=== PATIENT | male | born 1980 | race Caucasian/White ===

== ENCOUNTER → 2022-07-21 16:02 | Outpatient (CLI) | payer OTHER, SELFPAY ==
--- NOTE | ~2022-07-21 | CT_ITS ---
EXAMINATION: CT sinus wo con DATE: 07/21/2022 16:14 INDICATION: Chronic sinusitis TECHNIQUE: Computed tomography (CT) of the paranasal sinuses was performed without contrast. Iterativ e reconstruction technique was employed. Exam dose: 305.66 mGy-cm total exam DLP. COMPARISON: None FINDINGS: There is leftward bowing of the nasal septum. The nasal turbinates are moderately prominent and relatively symmetric in size. The ostiomeatal units are patent bilaterally. Normal development and aeration of the paranasal sinuses and mastoid air cells. IMPRESSION: Normal development and aeration of the paranasal sinuses, ostiomeatal units and mastoid air cells Reviewed, dictated and finalized at [facility]. Reviewed, dictated and finalized at [facility]. IMPRESSION: Normal development and aeration of the paranasal sinuses, ostiomea denys units and mastoid air cells
== END ==
PROVIDERS: PCP Family Medicine; Visit Provider Otolaryngology
DX: J32.9 Chronic sinusitis, unspecified (principal)
CPT/HCPCS: 70486

== ENCOUNTER 2024-02-03 07:00 | Outpatient (NON) | payer OTHER, SELFPAY | END 2024-02-03 07:01 | disposition home or self-care (01) | LOC: ANHLAB 02-04 10:04 | PROVIDERS: PCP Family Medicine; Visit Provider Internal Medicine Gastroenterology | DX: K63.5 Polyp of colon (principal) | CPT/HCPCS: 88305 ==

== ENCOUNTER 2024-02-03 10:54 | Day surgery (SDC) | payer OTHER, SELFPAY ==
[2024-01-14 12:04] VITALS: BMI 27.0
[2024-01-14 13:44] VITALS: BMI 27.0
[2024-02-03 11:28] VITALS: BP 128/93; PULSE 74; RESP 18; TEMP 36.4; O2SAT 99; BMI 26.4
[2024-02-03] MEDS: LACTATED RINGERS 1,000 ML 150 ML IV CONT (11:37)
--- NOTE | 2024-02-03 12:06 | PM.HPGS ---
History of Present Illness History of Present Illness Consent: Risks, benefits, and alternatives have been discussed and questions answered. Patient agrees to proceed with procedure. Chief complaint: Gerd w/o Esophagitis, Hematemesis, Neoplasm Screen Narrative: Amrik Redd is a 43 year old male presents for both colonoscopy and EGD. Patient reports a distant history of coffee-ground emesis. Recently has had some dyspepsia and felt to have underlying acid reflux. Patient denies any dysphagia. EGD is requested to assess more thoroughly. Patient also noticed episode of blood in his stool with wiping. He had a similar episode several years ago. He presents today for neoplasia screening colonoscopy. Review of Systems Review of Systems: All systems reviewed & are unremarkable except as noted in HPI and below PMFSH Past Medical History Medical History Allergies Allergy-induced asthma Esophageal abnormality Hyperlipidemia Family History Family History Grandparent Cerebrovascular accident Other Diabetes mellitus Family history of coronary artery disease Hypertension Social History Social History Smoking status: Never smoker Second hand tobacco smoke exposure: No Alcohol intake: current Substance use: never Substance use type: does not use Lack of Transportation: No Lack of Food: Never True Current Housing: I Have Housing Concerned About Future Housing: No Difficulty Paying Gas/Electric Bills: No Difficulty Paying for Meds: No Currently Unemployed: No Difficulty w/ Childcare or Family Care: No Living arrangements: with family Gender identity (if verbalized by the patient): Male Sexual Orientation (if Verbalized by the Patient): Straight or Heterosexual Spiritual care concerns: No Agree to blood products: Yes Meds Home Medications and Allergies Home Medications Medication Instructions Recorded Confirmed Type albuterol sulfate 90 mcg/actuation 1 inh inhalation Q4H PRN shortness 08/27/21 02/03/24 Rx aerosol inhaler of breath or wheezing #8.5 grams albuterol sulfate 90 mcg/actuation 1 inh inhalation Q4-6H PRN 08/27/21 02/03/24 History breath activated powder inhaler Shortness Of Breath Or Wheezing cholecalciferol (vitamin D3) 125 125 mcg PO DAILY 08/27/21 02/03/24 History mcg (5,000 unit) capsule omega 6-dfy-wem-fish oil 100 1 cap PO DAILY 01/02/22 02/03/24 History mg-160 mg-1,000 mg capsule (Fish Oil) fluticasone propionate 50 1 spray intranasal DAILY 01/28/22 02/03/24 History mcg/actuation nasal spray,suspension (Flonase Allergy Relief) rosuvastatin 5 mg tablet 5 mg PO DAILY #90 tabs 01/17/24 02/03/24 Rx Allergies Allergy/AdvReac Type Severity Reaction Status Date / Time banana Allergy Intermediate Chest Pain Verified 02/03/24 11:16 clavulanic acid AdvReac Severe Nausea and Verified 02/03/24 11:15 [From Augmentin] Vomiting amoxicillin AdvReac Unknown Nausea and Verified 02/03/24 11:15 Vomiting Vital Signs Vital Signs - 24 hr 02/03/24 11:28 Temperature 97.6 F Pulse Rate 74 Respiratory Rate 18 Blood Pressure 128/93 H Pulse Oximetry 99 Oxygen Delivery Room Air Exam Narrative: Physical exam reveals patient. Vital signs stable. HEENT exam is unremarkable. Patient is anicteric. Lungs are clear to auscultation and percussion. Heart is without murmur or extra sounds. Abdomen bowel sounds are present soft nontender with no organomegaly. Digital external rectal exam normal. Assessment and Plan Assessment and plan (1) Blood in stool: Code(s): K92.1 - Melena Status: Acute Assessment and Plan: Patient has noticed blood in his stool described as purplish in color. Plan for colonoscopy to assess more thoroughly. High-fiber diet advise
--- NOTE | 2024-02-03 12:27 | WPDANESEPPF ---
Anes - Initial Pre Proc Eval Procedure: Operation Date: 02/03/24 12:30 Proposed Procedures p Esophagogastroduodenoscopy - Yony Melendez MD s Screening Colonoscopy - Yony Melendez MD Date/Time: 02/03/24 12:27 Surgeon: Yony Melendez MD Pre Op Diagnosis: Gerd w/o Esophagitis, Hematemesis, Neoplasm Screen Patient Data Age: 43 Gender: M Height: 1.91 m Weight: 96 kg Last Vital Signs Temp 36.4 C 02/03/24 11:28 Pulse 74 02/03/24 11:28 Resp 18 02/03/24 11:28 BP 128/93 H 02/03/24 11:28 Pulse Ox 99 02/03/24 11:28 O2 Del Method Room Air 02/03/24 11:28 Allergies Allergy/AdvReac Type Severity Reaction Status Date / Time banana Allergy Intermediate Chest Pain Verified 02/03/24 11:16 clavulanic acid AdvReac Severe Nausea and Verified 02/03/24 11:15 [From Augmentin] Vomiting amoxicillin AdvReac Unknown Nausea and Verified 02/03/24 11:15 Vomiting Home Medications Medication Instructions Recorded Confirmed Type albuterol sulfate 90 mcg/actuation 1 inh inhalation Q4H PRN shortness 08/27/21 02/03/24 Rx aerosol inhaler of breath or wheezing #8.5 grams albuterol sulfate 90 mcg/actuation 1 inh inhalation Q4-6H PRN 08/27/21 02/03/24 History breath activated powder inhaler Shortness Of Breath Or Wheezing cholecalciferol (vitamin D3) 125 125 mcg PO DAILY 08/27/21 02/03/24 History mcg (5,000 unit) capsule omega 9-cac-vzr-fish oil 100 1 cap PO DAILY 01/02/22 02/03/24 History mg-160 mg-1,000 mg capsule (Fish Oil) fluticasone propionate 50 1 spray intranasal DAILY 01/28/22 02/03/24 History mcg/actuation nasal spray,suspension (Flonase Allergy Relief) rosuvastatin 5 mg tablet 5 mg PO DAILY #90 tabs 01/17/24 02/03/24 Rx Patient hx anesthesia problems: none Family hx anesthesia problems: none Results Review: All pre-operative results and documents have been reviewed as part of the pre-operative evaluation. [facility] Past Medical History Medical History Allergies Allergy-induced asthma Esophageal abnormality Hyperlipidemia Family History Family History Grandparent Cerebrovascular accident Other Diabetes mellitus Family history of coronary artery disease Hypertension Social History Social History Smoking status: Never smoker Second hand tobacco smoke exposure: No Alcohol intake: current Substance use: never Substance use type: does not use Lack of Transportation: No Lack of Food: Never True Current Housing: I Have Housing Concerned About Future Housing: No Difficulty Paying Gas/Electric Bills: No Difficulty Paying for Meds: No Currently Unemployed: No Difficulty w/ Childcare or Family Care: No Living arrangements: with family Gender identity (if verbalized by the patient): Male Sexual Orientation (if Verbalized by the Patient): Straight or Heterosexual Spiritual care concerns: No Agree to blood products: Yes Anes - Eval Final PreProcedure Day of Procedure 02/03/24 12:27 Patient weight: overweight Heart: regular rate and rhythm Lungs: clear to auscultation Airway: Mallampati scale class 1 Neurological: alert and oriented Last oral intake: >/= 8 hours ASA classification: II Emergent: no Anesthetic plan: proceed Anesthesia type and monitoring: general GIVS and standard monitoring Results Review: All pre-operative results and documents have been reviewed as part of the pre-operative evaluation. Informed Consent: The patient's anesthetic plan and its attendant risks and benefits were discussed with the patient/family/POA. Questions were solicited and answers provided to the satisfaction of the patient/family/POA.
[2024-02-03 13:28] VITALS: BP 104/74; PULSE 61; RESP 15; O2SAT 100
[2024-02-03 13:38] VITALS: BP 133/96; PULSE 67; RESP 16; O2SAT 100
--- NOTE | 2024-02-03 13:42 | WPDANESPN ---
Anes - Prog Note Post-Op Date/Time: 02/03/24 13:42 Cardiovascular status: normal Respiratory status: normal Airway patency: baseline Mental status: baseline Post-Op hydration status: normal Vital Signs: Last Vital Signs Temp 36.4 C 02/03/24 11:28 Pulse 61 02/03/24 13:28 Resp 15 02/03/24 13:28 BP 104/74 02/03/24 13:28 Pulse Ox 100 02/03/24 13:28 O2 Del Method Nasal Cannula 02/03/24 13:28 O2 Flow Rate 6 02/03/24 13:28 Pain Score (VAS): 0 I/O: Intake & Output 02/02/24 02/03/24 02/03/24 23:59 07:59 15:59 Intake Total 600 Balance 600 Patient Feedback: Patient satisfied with anesthetic care.
[2024-02-03 13:48] VITALS: BP 130/96; PULSE 58; RESP 18; O2SAT 100
== END 2024-02-03 14:08 | disposition home or self-care (01) ==
PROVIDERS: PCP Family Medicine; Visit Provider Internal Medicine Gastroenterology
PROC: 0DJ08ZZ Inspection of Upper Intestinal Tract, Via Natural or Artificial Opening Endoscopic (ICD-10-PCS; CPT 43235; principal; 2024-02-03 12:30)
PROC: 0DJD8ZZ Inspection of Lower Intestinal Tract, Via Natural or Artificial Opening Endoscopic (ICD-10-PCS; CPT 45378; 2024-02-03 12:30)
DX: Z12.11 Encounter for screening for malignant neoplasm of colon (principal); D12.3 Benign neoplasm of transverse colon; K64.8 Other hemorrhoids; K22.10 Ulcer of esophagus without bleeding; K21.00 Gastro-esophageal reflux disease with esophagitis, without bleeding; K30 Functional dyspepsia; K92.0 Hematemesis
CPT/HCPCS: 45385; 43239